=== PATIENT | female | born 1990 | race Caucasian/White ===

== ENCOUNTER 2017-12-01 14:57 | Inpatient (IN) | payer OTHER ==
[2017-12-01 16:00] VITALS: BMI 26.8
[2017-12-01 16:30] LABS: BASO % 0.2 % (0.0-2.0); EOS # 0.1 K/uL (0.0-0.7); EOS % 0.8 % (0.0-4.0); HEMOGLOBIN 13.8 g/dL (12.0-16.0); LYMPH # 2.2 K/uL (1.0-4.3); LYMPH % 18.1 % (20.0-40.0); MEAN CELL VOLUME 86.2 fl (81.0-99.0); MEAN CORPUSCULAR HEMOGLOBIN 29.3 pg (27.0-31.0); MEAN PLATELET VOLUME 8.5 fl (7.2-11.7); MONO # 0.8 K/uL (0.0-0.8); MONO % 6.4 % (0.0-10.0); NEUT # 9.1 K/uL (1.8-7.0); NEUT % 74.5 % (50.0-75.0); NRBC % 0.1 % (0.0-0.0); RBC 4.7 Mil/uL (3.80-5.20); RED CELL DISTRIBUTION WIDTH 13.6 % (11.5-14.5); WHITE BLOOD COUNT 12.2 K/uL (4.8-10.8)
[2017-12-01 16:40] LABS: ALB/GLOB RATIO 1.2 (1.0-2.1); ALBUMIN 3.7 g/dL (3.5-5.0); ALT/SGPT 32 U/L (9-52); AST/SGOT 30 U/L (14-36); BLOOD UREA NITROGEN 8 mg/dl (7-17); CALCIUM 9.6 mg/dL (8.4-10.2); GFR NON-AFRICAN AMERICAN > 60
[2017-12-01] MEDS ORDERED: Nalbuphine HCL 10 mg/ml Ampule IVP PRN (16:47)
[2017-12-01] MEDS ORDERED: Nalbuphine 20 mg/ml Inj (1 ml) ONE (16:58)
[2017-12-01 17:23] LABS: SQUAMOUS EPITHIAL 6 /hpf (0-5); URINE BILIRUBIN NEGATIVE (NEGATIVE); URINE BLOOD NEGATIVE (NEGATIVE); URINE CLARITY CLOUDY (Clear); URINE COLOR YELLOW (YELLOW); URINE GLUCOSE (UA) NEG (Normal); URINE HYALINE CAST 0-2 /hpf (0-2); URINE LEUKOCYTE ESTERASE SMALL Leu/uL (Negative); URINE PROTEIN NEGATIVE (NEGATIVE); URINE UROBILINOGEN 0.2-1.0 mg/dL (0.2-1.0)
[2017-12-01] MEDS ORDERED: Lactated Ringer's 1,000 ML IV ONE (19:44)
[2017-12-01] MEDS ORDERED: Fentanyl/Bupivacaine HCl 250 ML EPI ONE (19:57)
--- NOTE | 2017-12-01 19:57 | OBADHP ---
Datetime: 12/01/2017 15:37 Admit Comment, IP Provider: PNP: Dr. Roa LMP: 03/05/2017 27 y/o at 39 weeks with CAROL 12/08/2017 is presenting with complaints of contractions that she endorses began 1-2 hrs ago, 9 in nature. She denies any vaginal bleeding, loss of fluid, _ endorse s + FM. She also reports a hx of migraines with last headache occuring a few hrs ago, treated with ty lenol. She denied blurred vision, cp or sob. OBGYNhx: fell from a balcony at 20 weeks gestation; states she was eval. at ED and everything was ok as per pt PMH: Migraines Allergies: Cipro-throat closes Meds: Took tylenol for headache; on prenatals FHx: mother-HTN SHx: no tobacco, EtOH or elicit drug use ROS: see above Vitals: 145/109 RR-16 Pulse-102bpm Spo2- 100% PE: Grimacing female in no respiratory distress Cardio: s1 s2, no murmurs. Resp: cta b/l Abd: gravid, soft, nontender Vacm, 20%, -2 Ext: no calf tenderness A/P: 27 y/o at 39 weeks with CAROL 12/08/2017 with complaints of contractions _ BP of 145/109. 1. Gestation HTN vs pre-eclampsia- ordered UA, CBC, CMP _ LDH. Will continue to monitor. labs- Creatinine-0.5, AST-30 ALT-32, Alk phos-133 H, HgB- 13.8, Hct-40.5, plt count-190 Patient seen and examined with Dr. Mejia -Analisa Vanegas, PGY-[address] Mejia: Patient was re-evaluated, now 6cm dilated. WIll admit patient to unit, star t IVF, Type and screen. Patient would like an epidural for pain. FHR = 135 mod, + accels, early decel erations noted. Admit and will reevaluate Extremities - PN: Normal Abdomen - PN: Normal Lungs - PN: Normal Heart - PN: Normal General - PN: Normal FHR - Baseline A Provider: 125 Gestation - Est Wks by US: 39 wks IP Hx Assessment: The History has been Reviewed and is Current Vital Signs Provider: Reviewed IP Chief Complaint: Uterine contractions NICHD Variability Prov Fetus A: Moderate 6-25bpm NICHD Accel Fetus A IP Provider: [id number] NICHD Decel Fetus A IP Provider: Early Dilatation, Provider: 1-2cm EGA AdmitDate IP: 39.0 IP Adm Impression: Term, intrauterine IP Admit Plan: Observation/Evaluation
[2017-12-01] MEDS ORDERED: Oxytocin 30 UNIT 30 UNITS/500 ML BAG IV ONE (21:57)
[2017-12-01] MEDS ORDERED: Oxycodone/Acetaminophen 5/325 mg Tab PO PRN (22:29)
[2017-12-01] MEDS ORDERED: Benzocaine/Menthol SPRAY TOP PRN (22:29)
--- NOTE | 2017-12-01 22:29 | OBDS ---
MATERNAL INFORMATION Provider Comments: of live female over intact perineum, OLLIE followed by shoulders and re st of infant atraumatically, thick meconium noted, infant placed on mother's chest, cord clamped and cut, placed in warmer with gate cutter, cord blood obtained, placenta delivered spontaneously , fundus firm, EBL = 100mL, bilateral labial abrasiona repaired with 3-0 vicryl rapide LABOR SUMMARY EDC: 12/08/2017 00:00
[2017-12-02] MEDS ORDERED: Benzocaine/Menthol SPRAY TOP PRN (01:19)
[2017-12-02] MEDS ORDERED: Oxycodone/Acetaminophen 5/325 mg Tab PO PRN (01:19)
[2017-12-02 06:42] LABS: HEMOGLOBIN 11.6 g/dL (12.0-16.0); MEAN CELL VOLUME 86.6 fl (81.0-99.0); MEAN CORPUSCULAR HEMOGLOBIN 29.2 pg (27.0-31.0); MEAN CORPUSCULAR HGB CONC 33.7 g/dL (33.0-37.0); RBC 3.99 Mil/uL (3.80-5.20); RED CELL DISTRIBUTION WIDTH 13.8 % (11.5-14.5); WHITE BLOOD COUNT 14.8 K/uL (4.8-10.8)
--- NOTE | 2017-12-02 09:01 | OBPPN ---
Datetime: 12/02/2017 08:59 PP Pain Prov: Within normal limits PP Nausea Prov: Denies PP Abdomen/Uterus Prov: Normal PP Lochia Prov: Normal PP Vulva/Perineum Prov: Normal PP Extremities Prov: Normal PP C/S Incision Prov: Not Applicable PP Progress Prov: Normal PP Impression Prov: Normal progression PP Plan Prov: Continue present management PP Progress Note Prov: PPD 1 s/p , doing well, breast and bottle feeding Continue current care
--- NOTE | 2017-12-03 09:37 | OBPPN ---
Datetime: 12/03/2017 09:33 PP Pain Prov: Within normal limits PP Nausea Prov: Denies PP Flatus Prov: Yes PP BM Prov: Yes PP Breasts Prov: Normal PP Heart Prov: Normal PP Lungs Prov: Normal PP Abdomen/Uterus Prov: Normal PP Lochia Prov: Normal PP Vulva/Perineum Prov: Normal PP CVA Tenderness Prov: Normal PP Extremities Prov: Normal PP Progress Note Prov: She feels fine; ambulating and tolerating diet H/H A: S/p DAY 2 PLAN: discharge home and follow up in 6w Vital Signs Provider PP: Reviewed; Within Normal Limits
--- NOTE | 2017-12-03 09:37 | OBDCSUM ---
Datetime: 12/03/2017 09:34 Discharged to, Provider: Home Follow up at, Provider: John Disch Instr Activity: Normal activity Disch Instr Diet: Regular Discharge Instructions, Provider: Routine instructions given Discharge Diagnosis, Provider: Term Delivered Follow up in weeks, Provider: 6w Disch Referrals: None Contraception discussed, Prov: Yes Disch Activity Restrictions: No sexual activity; Nothing in vagina - [place], tampons, douche
[2017-12-03 22:07] VITALS: BP 122/71; PULSE 94; RESP 20; TEMP 98.2; O2SAT 100
== END 2017-12-03 13:15 | disposition home or self-care (01) | DRG 775 ==
LOC: H.EROB2 14:57 → H.L&D 19:44 → H.OB/GYN 12-02 01:15
PROVIDERS: ADMIT Obstetrics & Gynecology; ATTEND Obstetrics & Gynecology
PROC: 10E0XZZ Delivery of Products of Conception, External Approach (ICD-10-PCS; principal; 2017-12-01)
PROC: 0UQMXZZ Repair Vulva, External Approach (ICD-10-PCS; 2017-12-01)
PROC: 4A1HXCZ Monitoring of Products of Conception, Cardiac Rate, External Approach (ICD-10-PCS; 2017-12-01)
DX: O77.0 Labor and delivery complicated by meconium in amniotic fluid (principal); Z37.0 Single live birth; Z3A.39 39 weeks gestation of pregnancy; O71.89 Other specified obstetric trauma